=== PATIENT | male | born 1935 | race Caucasian/White ===

== ENCOUNTER → 2016-11-27 11:04 | Outpatient (CLI) | payer MEDICARE, OTHER | END | disposition home or self-care (01) | LOC: D.US 11:04 | DX: R79.89 Other specified abnormal findings of blood chemistry (principal) ==

== ENCOUNTER 2019-07-17 15:54 | Inpatient (IN) | payer MEDICARE, OTHER ==
[~2019-07-17] VITALS: Ht 180.3 cm; Wt 82.6 kg
[2019-07-17 07:00] VITALS: BP 142/63
[2019-07-17 16:45] VITALS: BP 121/69; BMI 25.4
[2019-07-17 18:36] LABS: HEMATOCRIT 44.3 % (42.0-54.0); HEMOGLOBIN 15.7 g/dL (13.5-17.5); MCH 33.3 pg (26.0-34.0); MCHC 35.4 g/dL (31.0-37.0); MCV 93.9 fL (80.0-100.0); MEAN PLATELET VOLUME 10.6 fL (7.4-10.4); PLATELET COUNT 216 10x3/uL (130-400); RBC 4.72 10x6/uL (4.20-6.10); RDW 13.6 % (11.5-14.5); WBC 7.5 10x3/uL (4.8-10.8)
[2019-07-17 18:40] LABS: ALBUMIN 3.5 g/dL (3.4-5.0); ANION GAP 11.5 mmol/L (8-16); BILIRUBIN - DIRECT 0.15 mg/dL (0.00-0.30); BILIRUBIN - INDIRECT 0.44 mg/dL (0.00-1.00); BILIRUBIN - TOTAL 0.59 mg/dL (0.2-1.3); CALCIUM 8.7 mg/dL (8.5-10.1); CARBON DIOXIDE 28.5 mmol/L (21.0-32.0); CHOL - HDL RATIO 3.3 ratio (2.3-4.9); CREATININE - SERUM 1.3 mg/dL (0.6-1.3); LDL-HDL RATIO 1.9 ratio (1.5-3.5); MAGNESIUM - SERUM 1.9 mg/dL (1.8-2.4); PHOSPHOROUS 3.2 mg/dL (2.5-4.9); PROTEIN - SERUM 6.5 g/dL (6.4-8.2)
[2019-07-17 19:02] LABS: APTT 27.8 SECONDS (22.8-39.4); INR 1.02 (0.85-1.17); PROTIME 13.3 SECONDS (11.6-15.0)
--- NOTE | 2019-07-17 19:10 | NUR ---
BEDSIDE REPORT RECEIVED FROM DAY SHIFT, PT CARE ASSUMED. WROTE NAME ON BOARD. PT OUT OF ROOM FOR PROCEDURE.
[2019-07-17 19:29] LABS: EOSINOPHILS 2 % (0-7); LYMPHOCYTES 43 % (15-50); MONOCYTES 9 % (2-11); NEUTROPHILS 46 % (40-80); PLATELET ESTIMATE NORMAL
[2019-07-18 08:38] VITALS: BP 148/43
[2019-07-18 08:42] LABS: BILIRUBIN NEGATIVE (NEGATIVE); GLUCOSE NEGATIVE (NEGATIVE); KETONE NEGATIVE (NEGATIVE); NITRITE NEGATIVE (NEGATIVE); SPECIFIC GRAVITY 1.015 (1.005-1.020); UROBILINOGEN NORMAL (NORMAL)
--- NOTE | 2019-07-18 10:13 | NUR ---
RESTING IN BED, IV INFUSING, NO DISTRESS NOTED
[2019-07-18 12:50] LABS: BASOPHILS 0.2 % (0-2); EOSINOPHILS 3.1 % (0-7); HEMATOCRIT 44.1 % (42.0-54.0); HEMOGLOBIN 15.2 g/dL (13.5-17.5); IMMATURE GRANULOCYTES 0.1 % (0-5); MCH 32.8 pg (26.0-34.0); MCHC 34.5 g/dL (31.0-37.0); MEAN PLATELET VOLUME 10.2 fL (7.4-10.4); MONOCYTES 9.7 % (2-11); NEUTROPHILS 59.9 % (40-80); PLATELET COUNT 177 10x3/uL (130-400); RBC 4.64 10x6/uL (4.20-6.10); RDW 13.7 % (11.5-14.5)
[2019-07-18 13:16] LABS: ALBUMIN 3.3 g/dL (3.4-5.0); ANION GAP 11.8 mmol/L (8-16); BILIRUBIN - TOTAL 0.52 mg/dL (0.2-1.3); CALCIUM 7.7 mg/dL (8.5-10.1); CREATININE - SERUM 1.1 mg/dL (0.6-1.3); POTASSIUM - SERUM 4.8 mmol/L (3.5-5.1); PROTEIN - SERUM 6.3 g/dL (6.4-8.2)
[2019-07-18 13:36] VITALS: BP 116/62
[2019-07-18 18:27] VITALS: BP 112/51
[2019-07-18 19:30] VITALS: BP 118/58
[2019-07-19 00:46] VITALS: BP 111/50
[2019-07-19 04:30] VITALS: BP 115/52
[2019-07-19 06:53] LABS: BASOPHILS 0.1 % (0-2); EOSINOPHILS 4.4 % (0-7); HEMATOCRIT 38.4 % (42.0-54.0); HEMOGLOBIN 13.5 g/dL (13.5-17.5); IMMATURE GRANULOCYTES 0.3 % (0-5); LYMPHOCYTES 36.4 % (15-50); MCH 32.8 pg (26.0-34.0); MCHC 35.2 g/dL (31.0-37.0); MCV 93.2 fL (80.0-100.0); MEAN PLATELET VOLUME 10.9 fL (7.4-10.4); MONOCYTES 11.8 % (2-11); PLATELET COUNT 175 10x3/uL (130-400); RBC 4.12 10x6/uL (4.20-6.10); RDW 13.8 % (11.5-14.5); WBC 8.8 10x3/uL (4.8-10.8)
[2019-07-19 07:19] LABS: ALBUMIN 2.8 g/dL (3.4-5.0); ANION GAP 13.2 mmol/L (8-16); BILIRUBIN - TOTAL 0.33 mg/dL (0.2-1.3); CALCIUM 7.5 mg/dL (8.5-10.1); CARBON DIOXIDE 21.7 mmol/L (21.0-32.0); CREATININE - SERUM 1.1 mg/dL (0.6-1.3); POTASSIUM - SERUM 3.9 mmol/L (3.5-5.1); PROTEIN - SERUM 5.5 g/dL (6.4-8.2)
[2019-07-19 09:11] VITALS: BP 129/79
[2019-07-19 13:29] VITALS: BP 146/59
[2019-07-19 17:10] VITALS: BP 97/78
--- NOTE | 2019-07-19 18:09 | NUR ---
I have reviewed this patient and I concur with the Shift Assessment completed by the Licensed Practical Nurse today this shift.
--- NOTE | 2019-07-19 19:20 | NUR ---
A&O X 4. SUPINE IN BED, DENIES PAIN/NAUSEA AT THIS TIME. REPORTS FREQUENT LOOSE STOOLS. REQUESTS COFFEE. NO FURTHER NEEDS AT THIS TIME, WILL CONTNUE TO MONITOR.
[2019-07-19 19:30] VITALS: BP 129/46
[2019-07-20 00:41] VITALS: BP 130/47
--- NOTE | 2019-07-20 01:48 | NUR ---
I have reviewed this patient and I concur with the Shift Assessment completed by the Licensed Practical Nurse today this shift.
[2019-07-20 04:30] VITALS: BP 119/47
[2019-07-20 06:56] LABS: BASOPHILS 0.4 % (0-2); EOSINOPHILS 5.8 % (0-7); HEMATOCRIT 38.9 % (42.0-54.0); HEMOGLOBIN 13.5 g/dL (13.5-17.5); LYMPHOCYTES 36.3 % (15-50); MCH 32.1 pg (26.0-34.0); MCHC 34.7 g/dL (31.0-37.0); MCV 92.6 fL (80.0-100.0); MEAN PLATELET VOLUME 10.8 fL (7.4-10.4); MONOCYTES 12.4 % (2-11); NEUTROPHILS 45.1 % (40-80); PLATELET COUNT 170 10x3/uL (130-400); RDW 13.8 % (11.5-14.5); WBC 7.2 10x3/uL (4.8-10.8)
[2019-07-20 07:00] LABS: ALBUMIN 2.7 g/dL (3.4-5.0); ALKALINE PHOSPHATASE 43 U/L (30-120); ALT (SGPT) 16 U/L (10-68); BILIRUBIN - TOTAL 0.49 mg/dL (0.2-1.3); CALC OSMOLALITY 282 mosm/kg (275-300); CALCIUM 7.3 mg/dL (8.5-10.1); CHLORIDE - SERUM 112 mmol/L (98-107); GLUCOSE 104 mg/dL (74-106); POTASSIUM - SERUM 3.6 mmol/L (3.5-5.1); PROTEIN - SERUM 5.5 g/dL (6.4-8.2); SODIUM 143 mmol/L (136-145); eGFR NON AFRICAN AMERICAN 76 mL/min (90-120)
[2019-07-20 07:02] LABS: UREA NITROGEN 6 mg/dL (7-18)
[2019-07-20 09:04] VITALS: BP 136/57
[2019-07-20 13:34] VITALS: BP 130/79
[2019-07-20 15:42] VITALS: Ht 180.3 cm; Wt 82.6 kg
[2019-07-20 16:55] VITALS: BP 110/57
--- NOTE | 2019-07-20 19:17 | NUR ---
I have reviewed this patient and I concur with the Shift Assessment completed by the Licensed Practical Nurse today this shift.
[2019-07-20 19:30] VITALS: BP 130/47
[2019-07-21 00:39] VITALS: BP 145/52
[2019-07-21 05:12] VITALS: BP 165/61
[2019-07-21 05:19] LABS: BASOPHILS 0.2 % (0-2); EOSINOPHILS 3.6 % (0-7); HEMOGLOBIN 14.1 g/dL (13.5-17.5); IMMATURE GRANULOCYTES 0.3 % (0-5); LYMPHOCYTES 22.8 % (15-50); MCH 32.5 pg (26.0-34.0); MCHC 35.3 g/dL (31.0-37.0); MCV 92.2 fL (80.0-100.0); MONOCYTES 9.8 % (2-11); NEUTROPHILS 63.3 % (40-80); PLATELET COUNT 178 10x3/uL (130-400); RBC 4.34 10x6/uL (4.20-6.10); RDW 13.7 % (11.5-14.5)
[2019-07-21 05:27] LABS: WBC 10.2 10x3/uL (4.8-10.8)
[2019-07-21 05:45] LABS: ALKALINE PHOSPHATASE 51 U/L (30-120); ALT (SGPT) 18 U/L (10-68); BILIRUBIN - TOTAL 0.53 mg/dL (0.2-1.3); CALC OSMOLALITY 278 mosm/kg (275-300); CALCIUM 7.7 mg/dL (8.5-10.1); CARBON DIOXIDE 20.3 mmol/L (21.0-32.0); CHLORIDE - SERUM 110 mmol/L (98-107); GLUCOSE 115 mg/dL (74-106); POTASSIUM - SERUM 3.5 mmol/L (3.5-5.1); PROTEIN - SERUM 5.9 g/dL (6.4-8.2); SODIUM 141 mmol/L (136-145); eGFR NON AFRICAN AMERICAN 76 mL/min (90-120)
[2019-07-21 05:54] LABS: UREA NITROGEN 4 mg/dL (7-18)
--- NOTE | 2019-07-21 06:21 | NUR ---
I have reviewed this patient and I concur with the Shift Assessment completed by the Licensed Practical Nurse today this shift.
--- NOTE | 2019-07-21 07:34 | NUR ---
PT AWAKE AND ORIENTED, LYING IN BED WATCHING TELIVISION. PLESANT DEMENOR. NO COMPLAINTS OR CONCERNS AT THIS TIME. ALL QUESTIONS ANSWERED TO THE BEST OF MY ABILITY. CL IN REACH, SRX2.
[2019-07-21 09:17] VITALS: BP 144/59
[2019-07-21 12:23] VITALS: BP 144/56
--- NOTE | 2019-07-21 14:43 | NUR ---
PT ALERT AND ORIENTED, LYING IN BED. NO COMPLAINTS OR CONCERNS NOW THAT HE IS ON AND TOLERATING A REGULAR DIET. PT STATES HE'S READY TO GET OUT OF HERE SOON. CL IN REACH, SRX2, NO FAMILY AT BEDSIDE.
--- NOTE | 2019-07-21 14:47 | MORECARE ---
CASE MANAGEMENT DISCHARGE SUMMARY PATIENT: SHILA KOENIG UNIT: [id number] ADM DATE: 07/19/19 AGE: 84 : 37 SEX: M ROOM/BED: D.2235 AUTHOR: TAURUS,DOC PHYSICIAN: REFERRING PHYSICIAN: BRENDA HIGH DO DATE OF SERVICE: 07/21/19 Discharge Plan Patient Name: SHILA KOENIG Facility: [facility]:[place] : 1935 Planned Disposition: Home Anticipated Discharge Date: Discharge Date: Expected LOS: Initial Reviewer: [email or web address] Initial Review Date: 07/17/2019 Generated: 07/21/19 3:47 pm Comments DCP- Discharge Planning Updated by [email or web address]: Rae Espinal on 07/21/19 1:[address] Patient Name: SHILA KOENIG Admission Status: Urgent Accout number: [id number] Admission Date: 07-19-2019 : 1935 Admission Diagnosis:OTHER SPECIFIED BACTERIAL INTESTINAL INFECTIONS Attending: BRENDA HIGH Current LOS: 2 Anticipated DC Date: Planned Disposition: Home Primary Insurance: MEDICARE A & B Discharge Planning Comments: CM met with patient to complete initial dc planning assessment. CM educated patient on the CM role and verbal consent given by patient to complete assessment. Patient lives at home with his . At discharge patient plans to return and feels this is a safe discharge. CM discussed availability of home health, rehab services, and medical equipment. Patient denied known discharge needs at this time. CM will continue to follow and will assist as needed with dc plans/needs. Bath Mix Operator: Rae Espinal DCPIA - Discharge Planning Initial Assessment Updated by [id number]: Rae Espinal on 07/21/19 2:44 pm * Is the patient Alert and Oriented? Yes * How many steps to enter\exit or inside your home? 0/0 * PCP Dr. Velázquez * Pharmacy [facility] on [address] * Preadmission Environment Home with Family * ADLs Independent * Equipment None * List name and contact numbers for known caregivers / representatives who currently or will assist patient after discharge: Inga Koenig - spouse - [phone] * Verbal permission to speak to the caregivers and representatives has been obtained from the patient. Yes * Community resources currently utilized None * Additional services required to return to the preadmission environment? No * Can the patient safely return to the preadmission environment? Yes * Has this patient been hospitalized within the prior 30 days at any hospital? No Coverage Notice Reviewer: [id number] Matthieu Graham Notice Issued Date-Time: 07/18/2019 15:45 Notice Type: Medicare Outpatient Observation Notice Notice Delivered To: Patient Relationship to Patient: Self Finishing Wire Sawyer Name: Shila Koenig Delivery Method: HAND - Hand Delivered Aidee Days: Prior Verbal Notification: Recipient Understood Notice: Yes Recipient Signature: Yes Med Rec Note Co-signed by Attending: Coverage Notice Comment: ROBERSON delivered to and signed by patient. Original given to patient and one placed on the chart. Patient Name: SHILA KOENIG Page [phone] at 1447 All edits/amendments must be made on the electronic document DICTATION DATE: 07/21/197 COATING MANAGER: JOSUÉ 07/21/19 1447 RPT#: [id number] DC DATE: STATUS: ADM IN [facility] [address] [place] [address] END OF REPORT
[2019-07-21 17:03] VITALS: BP 133/52
[2019-07-21 19:30] VITALS: BP 153/51
--- NOTE | 2019-07-21 20:45 | NUR ---
REC'D CHGE OF SHIFT WALKING ROUNDS SITTING ON SIDE OF BED TALKING ON PHONE STATES ABDOMINAL PAIN BETTER NOW HAD PAIN TAB EARLIER WILL CONTINUE TO MONITOR FOR ANY CHGES AND FOLLOW CURRENT PLAN OF CARE.
[2019-07-22] VITALS: BP 151/60
--- NOTE | 2019-07-22 03:43 | NUR ---
HAD BRANDING SPECIALIST EARLIER TO TURN HEAT UP AND CLOSE DOOR.ANSWERED CALL MANISHA STATES ITS SO HOT IN HERE I CAN'T BREATH. EXPLAINED WHEN DOOR IS CLOSED THERE IS NO IN BETWEEN. HEATTURNED DOWN DOOR OPEN. O2 SATS 91% SEVERAL DEEP BREATHING EXERCISES DONE SATS REMAIN 90/91%. 2L 02 NC APPLIED.RESP. HERE UPDRAFT TX. GIVEN STATES FEELS MUCH BETTER.02 SATS 93%. WILL CONTINUE TO MONITOR RESP.STATUS FOR ANY FURTHER CHGES AND FOLLOW CURRENT PLAN OF CARE.
[2019-07-22 05:00] VITALS: BP 145/54
--- NOTE | 2019-07-22 05:00 | NUR ---
I have reviewed this patient and I concur with the Shift Assessment completed by the Licensed Practical Nurse today this shift.
[2019-07-22 06:50] LABS: BASOPHILS 0.2 % (0-2); EOSINOPHILS 0.7 % (0-7); HEMATOCRIT 38.8 % (42.0-54.0); HEMOGLOBIN 13.8 g/dL (13.5-17.5); IMMATURE GRANULOCYTES 0.3 % (0-5); LYMPHOCYTES 17.7 % (15-50); MCH 32.4 pg (26.0-34.0); MCHC 35.6 g/dL (31.0-37.0); MCV 91.1 fL (80.0-100.0); MEAN PLATELET VOLUME 11.6 fL (7.4-10.4); MONOCYTES 11.3 % (2-11); NEUTROPHILS 69.8 % (40-80); PLATELET COUNT 169 10x3/uL (130-400); RBC 4.26 10x6/uL (4.20-6.10); WBC 9.8 10x3/uL (4.8-10.8)
[2019-07-22 06:54] LABS: ALBUMIN 2.8 g/dL (3.4-5.0); ALKALINE PHOSPHATASE 48 U/L (30-120); ALT (SGPT) 16 U/L (10-68); BILIRUBIN - TOTAL 0.56 mg/dL (0.2-1.3); CALC OSMOLALITY 277 mosm/kg (275-300); CALCIUM 7.7 mg/dL (8.5-10.1); CARBON DIOXIDE 21.2 mmol/L (21.0-32.0); CHLORIDE - SERUM 109 mmol/L (98-107); CREATININE - SERUM 0.9 mg/dL (0.6-1.3); GLUCOSE 130 mg/dL (74-106); POTASSIUM - SERUM 3.1 mmol/L (3.5-5.1); PROTEIN - SERUM 5.7 g/dL (6.4-8.2); SODIUM 140 mmol/L (136-145); UREA NITROGEN 4 mg/dL (7-18); eGFR NON AFRICAN AMERICAN 86 mL/min (90-120)
--- NOTE | 2019-07-22 07:45 | NUR ---
PT RECEIVED LAYING IN BED, ALERT AND AWAKE, ORIENTED. NO COMPLAINTS AT PRESENT.
[2019-07-22 09:05] VITALS: BP 145/59
[2019-07-22 12:39] LABS: BILIRUBIN NEGATIVE (NEGATIVE); GLUCOSE NEGATIVE (NEGATIVE); KETONE SMALL mg/dL (NEGATIVE); NITRITE NEGATIVE (NEGATIVE); UROBILINOGEN NORMAL (NORMAL)
[2019-07-22 13:22] VITALS: BP 164/67
[2019-07-22 17:31] VITALS: BP 151/58
[2019-07-22 19:08] LABS: OVA + PARASITE EXAM Final report (())
[2019-07-22 20:00] VITALS: BP 164/66
--- NOTE | 2019-07-23 | NUR ---
REC;D CHGE OF SHIFT WALKING ROUNDS SITTING ON SIDE OF BED.DENIES ANY RESP, DIFFICULTY AT PRESENT TIME.WILL CONTINUE TO MONITOR FOR ANY CHGES.AND FOLLOW CURRENT PLAN OF CARE.
[2019-07-23 04:00] VITALS: BP 155/76
--- NOTE | 2019-07-23 04:00 | NUR ---
I have reviewed this patient and I concur with the Shift Assessment completed by the Licensed Practical Nurse today this shift.
[2019-07-23 05:10] LABS: BASOPHILS 0.1 % (0-2); EOSINOPHILS 1.9 % (0-7); HEMATOCRIT 39.3 % (42.0-54.0); HEMOGLOBIN 14.3 g/dL (13.5-17.5); IMMATURE GRANULOCYTES 0.3 % (0-5); MCH 32.8 pg (26.0-34.0); MCHC 36.4 g/dL (31.0-37.0); MCV 90.1 fL (80.0-100.0); MEAN PLATELET VOLUME 11.5 fL (7.4-10.4); MONOCYTES 13.6 % (2-11); NEUTROPHILS 63.1 % (40-80); PLATELET COUNT 170 10x3/uL (130-400); RBC 4.36 10x6/uL (4.20-6.10); RDW 13.9 % (11.5-14.5); WBC 9.3 10x3/uL (4.8-10.8)
[2019-07-23 05:40] LABS: ALBUMIN 2.7 g/dL (3.4-5.0); ALKALINE PHOSPHATASE 46 U/L (30-120); ALT (SGPT) 18 U/L (10-68); BILIRUBIN - TOTAL 0.78 mg/dL (0.2-1.3); CALC OSMOLALITY 278 mosm/kg (275-300); CALCIUM 7.8 mg/dL (8.5-10.1); CARBON DIOXIDE 21.1 mmol/L (21.0-32.0); CHLORIDE - SERUM 109 mmol/L (98-107); CREATININE - SERUM 0.9 mg/dL (0.6-1.3); GLUCOSE 120 mg/dL (74-106); POTASSIUM - SERUM 3.1 mmol/L (3.5-5.1); PROTEIN - SERUM 5.8 g/dL (6.4-8.2); SODIUM 141 mmol/L (136-145); UREA NITROGEN 3 mg/dL (7-18); eGFR NON AFRICAN AMERICAN 86 mL/min (90-120)
[2019-07-23 09:38] VITALS: BP 146/54
--- NOTE | 2019-07-23 11:37 | NUR ---
22GA INITIATED TO THE RIGHT WRIST PIV. FLUSHED WITH 10ML NS TO CONFIRM PATENCY. PT TOLERATED WELL. NS INFUSING @75ML/HR VIA R.WRIST. WILL CTM.
[2019-07-23 13:09] VITALS: BP 133/58
[2019-07-23 16:46] VITALS: BP 128/49
--- NOTE | 2019-07-23 20:00 | NUR ---
PT SITTING UP IN BED A/O X4. VSS. PT REQUEST SOMETHING FOR SLEEP. PRN BENADRYL ORDERED. BED LOW CALL LIGHT WITHIN REACH. WILL CONTINUE TO MONITOR.
[2019-07-24] VITALS: BP 154/73
--- NOTE | 2019-07-24 03:32 | NUR ---
PT RESTING IN BED WITH EYES CLOSED RR EVEN AND UNLABORED. NO S/S OF DISTRESS AT THIS TIME. WILL CONTINUE TO MONITOR.
[2019-07-24 04:00] VITALS: BP 109/37
--- NOTE | 2019-07-24 04:37 | NUR ---
I have reviewed this patient and I concur with the Shift Assessment completed by the Licensed Practical Nurse today this shift.
--- NOTE | 2019-07-24 07:44 | NUR ---
ALERT AND ORIENTED. LUNGS CLEAR BILATERALLY. HEART SOUNDS S1 AND S2 HEARD IN ALL DEL CID. BOWEL SOUNDS ACTIVE X 4. SKIN INTACT WITHOUT REDNESS. IV TO RIGHT WRIST PATENT WITHOUT REDNESS. DENIES PAIN. DENIES NEEDS. BED LOW. CALL MANE AND PERSONAL ITEMS IN REACH. WILL CONTINUE TO MONITOR.
[2019-07-24 08:49] VITALS: BP 146/59
--- NOTE | 2019-07-24 10:27 | MORECARE ---
CASE MANAGEMENT DISCHARGE SUMMARY PATIENT: SHILA KOENIG UNIT: [id number] ADM DATE: 07/19/19 AGE: 84 : 37 SEX: M ROOM/BED: D.2235 AUTHOR: ISIDRO CONDON PHYSICIAN: REFERRING PHYSICIAN: BRENDA HIGH DO DATE OF SERVICE: 07/24/19 Discharge Plan Patient Name: SHILA KOENIG Facility: [facility]:[place] : 1935 Planned Disposition: Home Anticipated Discharge Date: Discharge Date: Expected LOS: Initial Reviewer: [email or web address] Initial Review Date: 07/17/2019 Generated: 07/24/19 11:27 am Comments DCP- Discharge Planning Updated by [email or web address]: Rae Espinal on 07/24/19 9:[address] Patient Name: SHILA KOENIG Encounter No: [id number] : 1935 Primary Insurance: MEDICARE A & B Anticipated DC Date: Planned Disposition: Home External Planned Provider: : DCP follow-up note: Patient in agreement with discharge plan. No changes to plan. Declines need for HHS. I informed him that he would have 2 antibiotics to get at this pharmacy, voiced understanding. States his family will pick him up for discharge. Case management will follow and assist as needed. Rae Espinal DCP- Discharge Planning Updated by [id number]: Rae Espinal on 07/21/19 1:[address] Patient Name: SHILA KOENIG Admission Status: Urgent Accout number: [id number] Admission Date: 07-19-2019 : 1935 Admission Diagnosis:OTHER SPECIFIED BACTERIAL INTESTINAL INFECTIONS Attending: BRENDA HIGH Current LOS: 2 Anticipated DC Date: Planned Disposition: Home Primary Insurance: MEDICARE A & B Discharge Planning Comments: CM met with patient to complete initial dc planning assessment. CM educated patient on the CM role and verbal consent given by patient to complete assessment. Patient lives at home with his . At discharge patient plans to return and feels this is a safe discharge. CM discussed availability of home health, rehab services, and medical equipment. Patient denied known discharge needs at this time. CM will continue to follow and will assist as needed with dc plans/needs. Line Helper: Rae Espinal DCPIA - Discharge Planning Initial Assessment Updated by [id number]: Rae Espinal on 07/21/19 2:44 pm * Is the patient Alert and Oriented? Yes * How many steps to enter\exit or inside your home? 0/0 * PCP Dr. Velázquez * Pharmacy [facility] on [address] * Preadmission Environment Home with Family * ADLs Independent * Equipment None * List name and contact numbers for known caregivers / representatives who currently or will assist patient after discharge: Inga Koenig - spouse - [phone] * Verbal permission to speak to the caregivers and representatives has been obtained from the patient. Yes * Community resources currently utilized None * Additional services required to return to the preadmission environment? No * Can the patient safely return to the preadmission environment? Yes * Has this patient been hospitalized within the prior 30 days at any hospital? No Coverage Notice Reviewer: [id number] Matthieu Graham Notice Issued Date-Time: 07/18/2019 15:45 Notice Type: Medicare Outpatient Observation Notice Notice Delivered To: Patient Relationship to Patient: Self Wind Farm Engineer Name: Shila Koenig Delivery Method: HAND - Hand Delivered Aidee Days: Prior Verbal Notification: Recipient Understood Notice: Yes Recipient Signature: Yes Med Rec Note Co-signed by Attending: Coverage Notice Comment: ROBERSON delivered to and signed by patient. Original given to patient and one placed on the chart. Reviewer: [id number] - Rae Espinal Notice Issued Date-Time: 07/24/2019 10:21 Notice Type: IM Discharge Notice Notice Delivered To: Patient Relationship to Patient: Self Wind Farm Engineer Name: Delivery Method: HAND - Hand Delivered Aidee Days: Prior Verbal Notification: Recipient Understood Notice: Yes Recipient Signature: Yes Med Rec Note Co-signed by Attending: Coverage Notice Comment: IMM explained, signed, given, copy placed in MR Last DP export: 07/21/19 1:47 p Patient Name: SHILA KOENIG Page [phone] at 1027 All edits/amendments must be made on the electronic document DICTATION DATE: 07/24/19 1027 VACUUM TRUCK DRIVER: JOSUÉ 07/24/19 1027 RPT#: [id number] DC DATE: STATUS: ADM IN [facility] [address] [place] [address] END OF REPORT
--- NOTE | 2019-07-24 12:15 | NUR ---
IV INFILTRATED TO RIGHT WRIST. REMOVED WITH TIP INTACT. DOES NOT WANT TO BE STUCK AGAIN. DC ORDER IN FOR TODAY.
[2019-07-24 12:39] VITALS: BP 146/65
--- NOTE | 2019-07-24 12:40 | NUR ---
SITTING ON SIDE OF BED EATING LUNCH. DENIES NEEDS. WILL CONTINUE TO MONITOR.
--- NOTE | 2019-07-24 13:15 | NUR ---
DISCHARGE EDUCATION PROVIDED BOTH WRITTEN AND VERBAL. VERBALIZED UNDERSTANDING. DENIES FURTHER QUESTIONS. NO IV TO REMOVE. DENIES NEEDS. WAITING RIDE.
--- NOTE | 2019-07-24 13:58 | NUR ---
PATIENT DISCHARGED HOME WITH ALL BELONGINGS.
--- NOTE | 2019-07-26 18:27 | MORECARE ---
CASE MANAGEMENT DISCHARGE SUMMARY PATIENT: SHILA KOENIG UNIT: [id number] ADM DATE: 07/19/19 AGE: 84 : 37 SEX: M ROOM/BED: D.2235 AUTHOR: TAURUSDOC PHYSICIAN: REFERRING PHYSICIAN: BRENDA HIGH DO DATE OF SERVICE: 07/26/19 Discharge Plan Patient Name: SHILA KOENIG Facility: [facility]:[place] : 1935 Planned Disposition: Home Anticipated Discharge Date: Discharge Date: 07/24/2019 Expected LOS: Initial Reviewer: [email or web address] Initial Review Date: 07/17/2019 Generated: 07/26/19 7:27 pm Comments DCP- Discharge Planning Updated by [email or web address]: Rae Espinal on 07/24/19 9:[address] Patient Name: SHILA KOENIG Encounter No: [id number] : 1935 Primary Insurance: MEDICARE A & B Anticipated DC Date: Planned Disposition: Home External Planned Provider: : DCP follow-up note: Patient in agreement with discharge plan. No changes to plan. Declines need for HHS. I informed him that he would have 2 antibiotics to get at this pharmacy, voiced understanding. States his family will pick him up for discharge. Case management will follow and assist as needed. Rae Espinal DCP- Discharge Planning Updated by [id number]: Rae Espinal on 07/21/19 1:[address] Patient Name: SHILA KOENIG Admission Status: Urgent Accout number: [id number] Admission Date: 07-19-2019 : 1935 Admission Diagnosis:OTHER SPECIFIED BACTERIAL INTESTINAL INFECTIONS Attending: BRENDA HIGH Current LOS: 2 Anticipated DC Date: Planned Disposition: Home Primary Insurance: MEDICARE A & B Discharge Planning Comments: CM met with patient to complete initial dc planning assessment. CM educated patient on the CM role and verbal consent given by patient to complete assessment. Patient lives at home with his . At discharge patient plans to return and feels this is a safe discharge. CM discussed availability of home health, rehab services, and medical equipment. Patient denied known discharge needs at this time. CM will continue to follow and will assist as needed with dc plans/needs. Planner Internship: Rae Espinal DCPIA - Discharge Planning Initial Assessment Updated by [email or web address]: Rae Espinal on 07/21/19 2:44 pm * Is the patient Alert and Oriented? Yes * How many steps to enter\exit or inside your home? 0/0 * PCP Dr. Velázquez * Pharmacy [facility] [address] * Preadmission Environment Home with Family * ADLs Independent * Equipment None * List name and contact numbers for known caregivers / representatives who currently or will assist patient after discharge: Inga Koenig - [facility] - [phone] * Verbal permission to speak to the caregivers and representatives has been obtained from the patient. Yes * Community resources currently utilized None * Additional services required to return to the preadmission environment? No * Can the patient safely return to the preadmission environment? Yes * Has this patient been hospitalized within the prior 30 days at any hospital? No Coverage Notice Reviewer: [id number] Matthieu Graham Notice Issued Date-Time: 07/18/2019 15:45 Notice Type: Medicare Outpatient Observation Notice Notice Delivered To: Patient Relationship to Patient: Self Fire Alarm Mechanic Name: Shila Koenig Delivery Method: HAND - Hand Delivered Aidee Days: Prior Verbal Notification: Recipient Understood Notice: Yes Recipient Signature: Yes Med Rec Note Co-signed by Attending: Coverage Notice Comment: ROBERSON delivered to and signed by patient. Original given to patient and one placed on the chart. Reviewer: [id number] - Rae Espinal Notice Issued Date-Time: 07/24/2019 10:21 Notice Type: IM Discharge Notice Notice Delivered To: Patient Relationship to Patient: Self Fire Alarm Mechanic Name: Delivery Method: HAND - Hand Delivered Aidee Days: Prior Verbal Notification: Recipient Understood Notice: Yes Recipient Signature: Yes Med Rec Note Co-signed by Attending: Coverage Notice Comment: IMM explained, signed, given, copy placed in MR Last DP export: 07/24/19 9:27 a Patient Name: SHILA KOENIG Page [phone] at 1827 All edits/amendments must be made on the electronic document DICTATION DATE: 07/26/191826 BUCKLE COVERER: JOSUÉ 07/26/191826 RPT#: [id number] DC DATE:07/24/19 STATUS: DIS IN [facility] [address] [facility] [place] [address] END OF REPORT
== END 2019-07-24 13:59 | disposition home or self-care (01) | DRG 371 ==
LOC: OBSVTIME 15:54 → D.MS 15:54
PROVIDERS: Family Medicine; Internal Medicine Nephrology; ADMIT Family Medicine; ATTEND Family Medicine
DX: A04.72 Enterocolitis due to Clostridium difficile, not specified as recurrent (principal); J18.9 Pneumonia, unspecified organism; E11.65 Type 2 diabetes mellitus with hyperglycemia; K76.0 Fatty (change of) liver, not elsewhere classified; E86.0 Dehydration; I70.0 Atherosclerosis of aorta; R91.1 Solitary pulmonary nodule; B96.81 Helicobacter pylori [H. pylori] as the cause of diseases classified elsewhere; A04.5 Campylobacter enteritis

== ENCOUNTER → 2020-10-20 08:50 | Outpatient (CLI) | payer MEDICARE, OTHER ==
[2019-07-20 15:42] VITALS: BMI 25.3
--- NOTE | ~2020-10-20 | EC ---
PATIENT:SHILA KOENIG DATE OF SERVICE: 10/20/20 SEX: M MEDICAL RECORD: [id number] DATE OF : [birth year] LOCATION:[facility] AGE OF PATIENT: 85 ADMISSION DATE: 10/20/20 REFERRING PHYSICIAN: INTERPRETING PHYSICIAN: TIANNA CORTES MD ECHOCARDIOGRAM REPORT ECHO CHARGES 4 ECHO COMPLETE Date: 10/20/20 CLINICAL DIAGNOSIS: AORTIC VALVE REPLACEMENT ECHOCARDIOGRAPHIC MEASUREMENTS (adult normal given) AC root (d.<3.7cm) 3.6 cm LV Septum d (<1.2 cm> 1.2 cm Valve Excursion 1.5 cm LV Septum (systole) 1.4 cm Left Atria (s.<4.0cm> 4.0 cm LVPW d(<1.2cm) 1.2 cm RV (d.<2.3cm) 3.7 cm LVPW (sytole) 1.6 cm LV diastole(<5.6CM) 4.4 cm MV E-F(>70mm/sec) cm LV systole 2.8 cm LVOT Diameter 1.8 cm MV exc.(>10mm) 1.7 cm Est.ejection fraction (50-75%) % DOPPLER: LVIT cm/sec A 138.0cm/sec E 83.0 cm/sec LA cm/sec RVSP 24 mmHg LVOT 121 cm/sec AOP1/2T 766 m/s Asc. Ao 222 cm/sec RVOT 91 cm/sec RA cm/sec PA 158 cm/sec AV Gradient Peak 19.78mmHg AV Mean 10.98mmHg AV Area 1.2 cm MV Gradient Peak 8.39 mmHg MV Mean 2.38 mmHg MV Area cm COMMENTS: IGNACIO TRACED AT 1.8CM2 Wallpaper Hanger Helper: 2 ANETA WERNER Executive Community Planning: 3 Dr. Pike TAPE# PACS Pericardial Effusion N DATE OF SERVICE: Adequate 2D, color flow imaging, spectral Doppler, and M-Mode. FINDINGS: Borderline LVH. LV internal dimensions are normal. Wall motion is normal. EF is greater than or equal to 55%. Aortic valve tissue replacement mildly elevated velocity 20 mmHg putting this in very mild range. Mild AI by color flow imaging. Left atrium is upper limits of normal at 4.0 cm. Mitral valve shows no prolapse. Mild MR. Right side is grossly normal. Trace TR. TRANSINT:[id number] Voice Confirmation ID: [id number] DOCUMENT ID: [id number] ECHOCARDIOGRAM REPORT [id number] SHILA KOENIG GREGORY A MD CC: [id number] DICTATION DATE: 10/21/20 1320 ASSISTANT BRANCH OPERATIONS MANAGER: 10/21/202320 DEP CLI 10/20/20 [place] [id number] [place] [id number]
[~2020-10-20 08:50] MED LIST: ATARAX 25 MG TA25 MG PO; CLARITHROMYCIN500 M1 PO; FLAGYL500 MG PO; FOLIC ACID1 MG PO; LEVAQUIN750 MG PO; METHOTREXATE2.5 MG PO; OMEPRAZOLE20 M1 PO; SINGULAIR10 MG PO
== END | disposition home or self-care (01) ==
LOC: D.HCCECHO 08:50
PROVIDERS: ATTEND Internal Medicine Interventional Cardiology
DX: I35.9 Nonrheumatic aortic valve disorder, unspecified (principal)